=== PATIENT | male | born 1960 | race Caucasian/White ===

== ENCOUNTER 2019-01-26 09:12 | Inpatient (IN) | payer BC ==
[~2019-01-26] VITALS: Ht 175.3 cm; Wt 91.6 kg
[2019-01-26] VITALS (18 sets, daily range): BP systolic 105–157; BP diastolic 59–93
[2019-01-26] MEDS ORDERED: IODIXANOL 320 MG/ML 100 ML VIAL. ONE (09:16)
[2019-01-26] MEDS ORDERED: LIDOCAINE 1% Multi-Dose 20 ML VIAL. ONE (09:17)
[2019-01-26 09:48] LABS: HEMATOCRIT 47.3 % (39.0-53.0); HEMOGLOBIN 16.4 g/dL (13.0-17.5); RED BLOOD COUNT 5.19 x10^6/uL (4.30-5.70); RED CELL DISTRIBUTION WIDTH 13.5 % (11.5-14.5); WHITE BLOOD COUNT 10.2 x10^3/uL (4.0-11.0)
[2019-01-26 09:50] LABS: CALCIUM 10.1 mg/dL (8.5-10.1); CREATININE 0.9 mg/dL (0.7-1.3); GFR 86.7; POTASSIUM 4.3 mmol/L (3.5-5.1)
[2019-01-26] MEDS ORDERED: NIFE60TA16 PO (10:03)
[2019-01-26] MEDS ORDERED: SIMV40TA3 PO (10:05)
[2019-01-26] MEDS ORDERED: ASPI-630 PO (10:05)
[2019-01-26] MEDS ORDERED: LISI-130 PO (10:05)
[2019-01-26] MEDS ORDERED: MIDAZOLAM HCL/PF 2 MG/2 ML VIAL. ONE ×3 (10:28→12:28)
[2019-01-26] MEDS ORDERED: fentaNYL PF VIAL 100 MCG/2 ML VIAL ONE ×3 (10:28→12:28)
[2019-01-26] MEDS ORDERED: HEPARIN for IV BOLUS 10,000 UNIT/10 ML VIAL. ONE ×2 (11:04→11:19)
[2019-01-26] MEDS ORDERED: HEPARIN for IV BOLUS 10,000 UNIT/10 ML VIAL. IV ONE (11:15)
[2019-01-26] MEDS ORDERED: MIDAZOLAM HCL/PF 2 MG/2 ML VIAL. IV ONE (11:15)
[2019-01-26] MEDS ORDERED: fentaNYL PF VIAL 100 MCG/2 ML VIAL IV ONE (11:15)
[2019-01-26] MEDS ORDERED: IODIXANOL 320 MG/ML 100 ML VIAL. IART ONE (11:15)
[2019-01-26] MEDS ORDERED: NITROGLYCERIN 4 MG/20 ML SYRINGE for CATH LAB. ONE ×2 (11:19→12:00)
[2019-01-26] MEDS ORDERED: dilTIAZem IV PUSH 25 MG/5 ML VIAL ONE (11:19)
[2019-01-26] MEDS: IV NORMAL SALINE 1000ML BAG 1,000 ML IV SCH ×2 (12:42→16:06)
[2019-01-26] MEDS ORDERED: NITROGLYCERIN 200 MCG/2 ML SYRINGE FOR CATH/VASC LAB. ONE (12:43)
[2019-01-26] MEDS ORDERED: NITROGLYCERIN 200 MCG/2 ML SYRINGE FOR CATH/VASC LAB. IART ONE (12:45)
[2019-01-26] MEDS ORDERED: LIDOCAINE 1% Multi-Dose 20 ML VIAL. INJ ONE (12:45)
[2019-01-26] MEDS ORDERED: CLOPIDOGREL BISULFATE 75 MG TABLET ONE (13:03)
[2019-01-26] MEDS ORDERED: ASPIRIN 325 MG TABLET ONE (13:03)
[2019-01-26] MEDS ORDERED: ASPIRIN 325 MG TABLET PO ONE (13:15)
[2019-01-26] MEDS ORDERED: CLOPIDOGREL BISULFATE 75 MG TABLET PO ONE (13:15)
[2019-01-26] MEDS ORDERED: ATROPINE 0.5 MG/5 ML DISP.SYRINGE. IV PRN (13:45)
[2019-01-26] MEDS ORDERED: fentaNYL PF VIAL 100 MCG/2 ML VIAL IV PRN (13:45)
[2019-01-26] MEDS ORDERED: oxyCODONE/APAP 5/325 1 TAB TABLET PO PRN (13:45)
[2019-01-26] MEDS ORDERED: 0.9 % SODIUM CHLORIDE 10 ML DISP.SYRIN. IV PRN (13:45)
[2019-01-26] MEDS ORDERED: AMIODARONE 150 MG in IV DEXTROSE 5% 100ML 100 ML IV PRN (13:45)
[2019-01-26] MEDS ORDERED: LIDOCAINE 2% 100 MG/5 ML SYRINGE. IV PRN (13:45)
[2019-01-26] MEDS ORDERED: ACETAMINOPHEN 325 MG TABLET. PO PRN (13:45)
[2019-01-26] MEDS ORDERED: NITROGLYCERIN SUBLINGUAL 0.4 MG BOTTLE OF 25. SL PRN (13:45)
--- NOTE | 2019-01-26 14:47 | CARD ---
MR#: [id number] Date of Study: 01/26/2019 Ordering Physician: NATHANAEL DAMON, Referring Physician: NATHANAEL DAMON, Tech: Randolph Velasquez RT (R) APPROVED REPORT Patient StatusOUT-PATIENT Sql Architect: Randolph Velasquez RT (R) Procedure(s) performed: Fluoro time: 26.3 MINS Dose: 150 GY/CM2 Contrast: 141 ML Moderate sedation: 143 Min Abdominal aortogram with bilateral peripheral run-off HIGH VALUE ASSOCIATE and atherectomy of the SFA HISTORY The patient is a 58 year-old male with a history of : coronary artery disease, tobacco history() , hy pertension, dyslipidemia. INDICATION FOR PROCEDURE The indication(s) include : Bilateral claudication. PROCEDURE NARRATIVE After appropriate informed consent, the patient was brought to the general laborer and placed in the supine position. Preprocedural timeout was completed and confirmed the right patient and procedure. The bila teral groins were prepped and draped in usual sterile fashion. Moderate sedation acheived with Fentan yl and Versed. The patient received 2000 units of Heparin for anticoagulation. Access: Under lidocaine local anesthesia, a 5Fr introducer sheath was placed in the RCFA via the francie fied seldinger technique with a J-tipped guidewire and an 18g needle. Diagnostic angiography was then performed using a 5Fr Omniflush catheter with digital subtraction angiography. Next, the contralater al (LCFA) was accessed with the aid of the Omniflush catheter and a J-tipped guidewire. The omniflush was then exchanged for a long angled glide catheter which was then placed in the LCFA. Repeat lower extremity with DSA was performed. Subsequently, the glidecatheter was used to do a pullback maneuver on the [place] stenosis. No significant stenosis was identified at the levels of the common iliac arteri es and the right external iliac artery. FINDINGS: AO: 154/86 AORTA: Moderate adventitial calcification with a small aneurysm in the distal abdominal aorta. RENAL arteries: Single right and left renal arteries were identified without significant disease. RCIA: Mild diffuse irregularities of upto 20%. REIA: Has a proximal 40-50% stenosis, a patent mid stent. RIIA: No significant disease. RCFA: No significant disease. RSFA: No significant disease. RPOP: No significant disease. RAT: No significant disease. RTP trunk: No significant disease. LCIA: No significant disease AFRICA: Mild to moderate diffuse disease of up to 50% LIIA: Has severe diffuse disease. LCFA: The distal POLICE CAPTAIN has a heavily calcified bulky 70% stenosis. LSFA: Has heavy adventitial calcification with an ostial 80% stenosis. There is also a more focal dis dana 70% stenosis. LPOP: No significant disease. LAT: No significant disease. LTP trunk: No significant disease. INTERVENTIONAL TECHNIQUE: ATHERECTOMY AND BALLOON ANGIOPLASTY OF THE LSFA Heparin was used for anticoagulation. Based upon the patient's significant claudication symptoms, ult rasound velocities suggestive of significant disease and angiographic findings consistent with heavy calcific focal disease a decision was made for intervention. After adequate heparinization with an AC T above 250 the right-sided sheath was replaced with a 6 Croatian 45 cm destination sheath which was pl aced in the left common femoral artery. A Viper wire was used to traverse the stenoses and this was p laced in the distal peroneal artery. Next, a embolus shield 4�7 filter was used and this was deployed in the popliteal artery. Next, a CSI 2 mm bur was used to perform orbital atherectomy of the ostial SFA as well as the distal SFA focal stenoses at low medium at high speeds. Subsequent only, balloon a ngioplasty was performed of the distal and proximal SFA with 5 mm balloons. Final angiography demonst rated excellent flow without any evidence of dissection. There was a residual less than 30% stenosis at the level of the ostium of the SFA. Due to lack of any critical limb ischemia it was felt that fur ther intervention should be deferred as repeat balloon angioplasty may lead to dissection and need fo r stenting which would be less than ideal in the common femoral arterial segment. The patient tolerat ed the procedure well. He received aspirin and Plavix at case completion. The sheath was then removed via manual compression. Conclusion 1. [place] category for bilateral lower extremity claudication with lifestyle limitations 2. Small focal distal abdominal aortic aneurysm 3. Moderate inflow disease at the level of the external iliacs bilaterally without any critical flow- limiting stenosis based on pullback gradient 4. Patent right external iliac artery stent without any significant in-stent restenosis 5. Successful orbital atherectomy and balloon angioplasty with a 5 mm balloon at the level of the lef t ostial/proximal and distal SFA. Recommendations ASA 81 mg Plavix 75mg daily Smoking cessation. Risk factor modification. Signed by : Nathanael Damon, Electronically Approved : 01/26/2019 14:47:00
[2019-01-26] MEDS: LISINOPRIL 20 MG TABLET PO SCH (17:00)
[2019-01-26] MEDS ORDERED: SIMVASTATIN 40 MG TABLET. PO SCH (21:00)
[2019-01-26] MEDS ORDERED: ATORVASTATIN CALCIUM 20 MG TABLET PO SCH (21:00)
[2019-01-27 03:00] VITALS: BP 134/77
[2019-01-27 04:56] LABS: HEMATOCRIT 44.2 % (39.0-53.0); HEMOGLOBIN 15.3 g/dL (13.0-17.5); RED BLOOD COUNT 4.87 x10^6/uL (4.30-5.70); RED CELL DISTRIBUTION WIDTH 13.4 % (11.5-14.5); WHITE BLOOD COUNT 10.8 x10^3/uL (4.0-11.0)
[2019-01-27 05:15] LABS: CALCIUM 9.6 mg/dL (8.5-10.1); CREATININE 0.9 mg/dL (0.7-1.3); GFR 86.7; POTASSIUM 4.1 mmol/L (3.5-5.1)
[2019-01-27 07:00] VITALS: BP 122/69
[2019-01-27] MEDS ORDERED: CLOPIDOGREL BISULFATE 75 MG TABLET PO SCH (08:00)
[2019-01-27] MEDS: LISINOPRIL 20 MG TABLET PO SCH (08:30)
[2019-01-27] MEDS ORDERED: ASPIRIN CHEWABLE 81 MG TABLET. PO SCH (09:00)
[2019-01-27 10:36] VITALS: BP 126/66
[2019-01-27] MEDS ORDERED: CLOP75TA PO (10:40)
--- NOTE | 2019-01-27 10:46 | DISCH ---
DISCHARGE INSTRUCTIONS Condition on Discharge Condition on Discharge: Stable Activity After Discharge Activity Instructions for Disc: Activity as tolerated Other activity instructions: keep right groin area clean and dry. May shower. Bathing Instructions: No Tub Bath until see Lifting Instructions after Dis: No heavy lifting, No pulling or pushing, Do not lift >10 pounds Exercise Instruction after Dis: Progress as tolerated Driving Instructions after Dis: Do not drive (for 5 days ) Diet after Discharge Diet after Discharge: Cardiac Contacting the DRAcosta after DC Call your doctor for: If your condition worsens Treatment/Equipment after DC Adaptive Equipment Issued: None SHAQUILLE YUEN APRN Jan 27, 2019 10:46
--- NOTE | 2019-01-27 10:48 | PDOC3 ---
Discharge Summary Visit Information Date of Admission: Jan 26, 2019 Date of Discharge: Jan 27, 2019 Admitting Diagnosis Comment: Peripheral artery disease Coronary artery disease Hypertension Hyperlipidemia Final Diagnosis Peripheral artery disease Coronary artery disease Hypertension Hyperlipidemia Brief Hospital Course Allergies Allergies Coded Allergies Type Severity Reaction Last Updated Verified No Known Drug Allergies 01/26/19 No Vital Signs Vital Signs Date Time Temp Pulse Resp B/P (MAP) Pulse Ox O2 Delivery O2 Flow Rate FiO2 01/27/19 10:36 98.3 80 18 126/66 (86) 96 Room Air 98.3 01/27/19 08:00 2.0 Lab Results Laboratory Tests Test 01/26/19 09:35 01/26/19 11:27 01/26/19 14:32 01/27/19 04:35 White Blood Count 10.2 x10^3/uL (4.0-11.0) 10.8 x10^3/uL (4.0-11.0) Red Blood Count 5.19 x10^6/uL (4.30-5.70) 4.87 x10^6/uL (4.30-5.70) Hemoglobin 16.4 g/dL (13.0-17.5) 15.3 g/dL (13.0-17.5) Hematocrit 47.3 % (39.0-53.0) 44.2 % (39.0-53.0) Mean Corpuscular Volume 91 fL (79-100) 91 fL (79-100) Mean Corpuscular Hemoglobin 32 pg (25-35) 32 pg (25-35) Mean Corpuscular Hemoglobin Concent 35 g/dL (31-37) 35 g/dL (31-37) Red Cell Distribution Width 13.5 % (11.5-14.5) 13.4 % (11.5-14.5) Platelet Count 316 x10^3/uL (140-400) 270 x10^3/uL (140-400) Prothrombin Time 12.0 SEC (11.7-14.0) Prothromb Time International Ratio 0.9 (0.8-1.1) Sodium Level 142 mmol/L (136-145) 140 mmol/L (136-145) Potassium Level 4.3 mmol/L (3.5-5.1) 4.1 mmol/L (3.5-5.1) Chloride Level 106 mmol/L (98-107) 105 mmol/L (98-107) Carbon Dioxide Level 27 mmol/L (21-32) 25 mmol/L (21-32) Anion Gap 9 (6-14) 10 (6-14) Blood Urea Nitrogen 10 mg/dL (8-26) 10 mg/dL (8-26) Creatinine 0.9 mg/dL (0.7-1.3) 0.9 mg/dL (0.7-1.3) Estimated GFR (Cockcroft-Gault) 86.7 86.7 Glucose Level 102 mg/dL (70-99) 101 mg/dL (70-99) Calcium Level 10.1 mg/dL (8.5-10.1) 9.6 mg/dL (8.5-10.1) Activated Clotting Time 235 sec (92-181) 179 sec (92-181) Triglycerides Level 248 mg/dL (0-150) Cholesterol Level 172 mg/dL (0-200) LDL Cholesterol, Calculated 79 mg/dL (0-100) VLDL Cholesterol, Calculated 50 mg/dL (0-40) Non-HDL Cholesterol Calculated 129 mg/dL (0-129) HDL Cholesterol 43 mg/dL (40-60) Cholesterol/HDL Ratio 4.0 Laboratory Tests Test 01/26/19 11:27 01/26/19 14:32 01/27/19 04:35 Activated Clotting Time 235 sec (92-181) 179 sec (92-181) White Blood Count 10.8 x10^3/uL (4.0-11.0) Red Blood Count 4.87 x10^6/uL (4.30-5.70) Hemoglobin 15.3 g/dL (13.0-17.5) Hematocrit 44.2 % (39.0-53.0) Mean Corpuscular Volume 91 fL (79-100) Mean Corpuscular Hemoglobin 32 pg (25-35) Mean Corpuscular Hemoglobin Concent 35 g/dL (31-37) Red Cell Distribution Width 13.4 % (11.5-14.5) Platelet Count 270 x10^3/uL (140-400) Sodium Level 140 mmol/L (136-145) Potassium Level 4.1 mmol/L (3.5-5.1) Chloride Level 105 mmol/L (98-107) Carbon Dioxide Level 25 mmol/L (21-32) Anion Gap 10 (6-14) Blood Urea Nitrogen 10 mg/dL (8-26) Creatinine 0.9 mg/dL (0.7-1.3) Estimated GFR (Cockcroft-Gault) 86.7 Glucose Level 101 mg/dL (70-99) Calcium Level 9.6 mg/dL (8.5-10.1) Triglycerides Level 248 mg/dL (0-150) Cholesterol Level 172 mg/dL (0-200) LDL Cholesterol, Calculated 79 mg/dL (0-100) VLDL Cholesterol, Calculated 50 mg/dL (0-40) Non-HDL Cholesterol Calculated 129 mg/dL (0-129) HDL Cholesterol 43 mg/dL (40-60) Cholesterol/HDL Ratio 4.0 Brief Hospital Course Mr. Montoya is a 58 old male, with a history of CAD, PAD, hypertension, and hyperlipidemia, who presented to the office with bilateral lower extremity claudication symptoms. Duplex ultrasound consistent with severe left SFA disease. Patient was brought electively for aortogram with runoff, which was notable for [place] category for bilateral lower extremity claudication with lifestyle limitations. There was moderate inflow disease at the level of the external iliacs bilaterally without any critical flow-limiting stenosis based on pullback gradient. Right external iliac artery stent was patent without any significant in-stent restenosis. Patient underwent successful orbital atherectomy and balloon angioplasty with a 5 mm balloon at the level of the left ostial/proximal and distal SFA. Was monitored overnight without any acute complications. Lungs CTA. Right groin arteriotomy site soft, clean, and dry. No erythema, ecchymosis, or hematoma present. Bilateral neurovascular status intact. Discharge instruction reviewed and patient verbalized and understanding. Smoking cessation was discussed and encouraged. Discharge Information Follow Up: Weeks (6) Disposition/Orders: D/C to Home Scheduled Aspirin (Aspirin) 81 Mg Tab.chew, 1 TAB PO DAILY for , #30 Ref 3 (Reported) Entered as Reported by: BOO LOPEZ RN on 01/26/19 1005 Last Taken: Unknown Dose on 01/26/19 Last Action: Continued on 01/26/19 1605 by AELX SHEIKH RN Clopidogrel Bisulfate (Clopidogrel) 75 Mg Tablet, 75 MG PO DAILYWBKFT for ar terial disease for 30 Days, #30 Ref 2 Prescribed by: SHAQUILLE YUEN APRN on 01/27/19 1040 Lisinopril (Lisinopril) 40 Mg Tablet, 1 TAB PO DAILY for francis inhibitor, #30 Ref 5 (Reported) Entered as Reported by: BOO LOPEZ RN on 01/26/19 100 Last Taken: Unknown Dose on 01/26/19 Last Action: Continued on 01/26/191604 by ALEX SHEIKH RN Nifedipine (Nifedipine Er) 60 Mg Tab.er.24, 1 TAB PO DAILY for , #30 Ref 5 (Rep orted) Entered as Reported by: BOO LOPEZ RN on 01/26/19 100 Last Taken: Unknown Dose on 01/26/19 Last Action: Converted on 01/26/191604 by ALEX SHEIKH RN Simvastatin (Simvastatin) 40 Mg Tablet, 1 TAB PO QHS for hld, #30 Ref 5 (Reported) Entered as Reported by: BOO LOPEZ RN on 01/26/19 100 Last Action: Continued on 01/26/191604 by ALEX SHEIKH RN Patient Instructions Patient Instructions GENERAL INSTRUCTIONS: 1. Your dressing should be removed prior to leaving the hospital. 2. It is OK to shower the day after your procedure. 3. If you received stents, be sure to carry your stent information card with you in your wallet/purse at all times. 4. Call the office immediately at [phone] if you notice any fever or if there is redness, worsening tenderness/pain, increased bruising, or drainage from the puncture site. 5. Should you have bleeding from the site, lie down immediately & put pressure on the site. The pressure should be hard enough to stop the bleeding. Have the nearest person call 911. DO NOT try to drive to the ER with active bleeding. 6. If you notice a change in color, coolness to touch, or loss of feeling in the affected extremity, come to the emergency room. Please have someone drive you or call 911 if no one is available. DO NOT drive yourself. 7. If you normally take glucophage (metformin), please do not take this medicine for 48 hours following your procedure. 8. DO NOT STOP TAKING YOUR PLAVIX OR ASPIRIN UNLESS IT IS CLEARED BY A FIBER OPTIC CENTRAL OFFICE INSTALLER OF YOUR TEXTILE COLORIST FORMULATOR AT OUR OFFICE. 9. QUIT SMOKING: the [place] [employer], [place] [employer], & [place] [employer] have cessation resources available on their websites 10. Please have someone available to drive you home from the hospital as you may be limited by sedation medications given during the procedure. Femoral (Groin) access: 1. Do no lifting, pushing, pulling, bending, stooping, or recurrent stair climbing for 3 days following your procedure. 2. Once past the first 3 days, do not do any HEAVY exertion or lifting for one week following the procedure. No gym workouts, running, lifting greater than a gallon of milk, etc 3. Do not submerge in bath or pool for one week. OK to drive 3 days following your procedure, but if going long distance, do not go alone & take hourly breaks to get out of car and walk around. Call the office at [phone] for any questions or concerns. SHAQUILLE YUEN APRN Jan 27, 2019 10:47
--- NOTE | 2019-01-27 11:40 | NUR ---
Discharge Note: JOSEPHINE TAYLOR [address] [place] [address] Discharge instructions and discharge home medications reviewed with Patient and a copy given. All questions have been answered and understanding verbalized. The following instructions and handouts were given: Post cath - care after Discontinued IV line Patient discharged to home with self care via spouse
== END 2019-01-27 11:18 | disposition home or self-care (01) | DRG 272 ==
LOC: CCL 09:12 → 2 SOUTH 12:30
PROVIDERS: ADMIT Internal Medicine Cardiovascular Disease; ATTEND Internal Medicine Cardiovascular Disease
PROC: 04CL3ZZ Extirpation of Matter from Left Femoral Artery, Percutaneous Approach (ICD-10-PCS; principal; 2019-01-26)
PROC: 047L3ZZ Dilation of Left Femoral Artery, Percutaneous Approach (ICD-10-PCS; 2019-01-26)
PROC: B41D1ZZ Fluoroscopy of Aorta and Bilateral Lower Extremity Arteries using Low Osmolar Contrast (ICD-10-PCS; 2019-01-26)
DX: I73.9 Peripheral vascular disease, unspecified (principal); E78.5 Hyperlipidemia, unspecified; I25.10 Atherosclerotic heart disease of native coronary artery without angina pectoris; I71.4 Abdominal aortic aneurysm, without rupture; I10 Essential (primary) hypertension; Z79.899 Other long term (current) drug therapy; Z79.82 Long term (current) use of aspirin; Z95.5 Presence of coronary angioplasty implant and graft; Z87.891 Personal history of nicotine dependence
CPT/HCPCS: 36415; 37225; 75625; 75716; 80048; 80061; 85027; 85347; 85610; 99152; 99153; 99406; C1724; C1725; C1769; C1892; C1894; J1644; J2250; J3010; J3490; J7030; Q9967; C1884; G0378

== ENCOUNTER 2019-02-12 10:51 | Inpatient (IN) | payer BC ==
[~2019-02-12] VITALS: Ht 175.3 cm; Wt 92.1 kg
[~2019-02-12 10:51] MED LIST: ASPI-630 PO; CLOP75TA PO; LISI-130 PO; NIFE60TA16 PO; SIMV40TA3 PO
--- NOTE | 2019-02-12 11:07 | PHYS DOC ---
Adult General Chief Complaint Chief Complaint: BLOODY STOOL HPI HPI 58 yo male presents to the ER with complaints of dark tarry stools. Patient was seen approximately 2 weeks ago with angioplasty to his SFA per Dr. Patrick. Patient was placed on plavix at that time. Patient states that over the last week he has noticed dark tarry stools, dizziness. Patient denies nausea, vomiting, chest pain, abdominal pain, fever. Nothing makes his symptoms worse, nothing makes his symptoms better. Review of Systems Review of Systems Constitutional: Denies fever or chills [] Respiratory: Denies cough or shortness of breath [] Cardiovascular: No additional information not addressed in HPI [] GI: Denies abdominal pain, nausea, vomiting, bloody stools or diarrhea [] Musculoskeletal: Denies back pain or joint pain [] Integument: Denies rash or skin lesions [] Neurologic: Denies headache, focal weakness or sensory changes [] All other systems were reviewed and found to be within normal limits, except as documented in this note. Current Medications Current Medications Current Medications Medications (Trade) Dose Ordered Sig/Audrey Start Time Stop Time Status Last Admin Dose Admin Pantoprazole Sodium 80 mg/ Sodium Chloride 100 ml @ 10 mls/hr 1X ONCE 02/12/19 11:45 02/12/19 21:44 Allergies Allergies Allergies Coded Allergies Type Severity Reaction Last Updated Verified No Known Drug Allergies 01/26/19 No Physical Exam Physical Exam Constitutional: Well developed, well nourished, no acute distress, non-toxic appearance. [] HENT: Normocephalic, atraumatic, bilateral external ears normal, oropharynx moist, no oral exudates, nose normal. [] Eyes: PERRLA, EOMI, conjunctiva normal, no discharge. [] Cardiovascular:Heart rate regular rhythm, no murmur [] Lungs & Thorax: Bilateral breath sounds clear to auscultation [] Abdomen: Bowel sounds normal, soft, no tenderness, no masses, no pulsatile masses. [] Skin: Warm, dry, no erythema, no rash. [] Extremities: No tenderness, no cyanosis, no clubbing, ROM intact, no edema. [] Neurologic: Alert and oriented X 3, no focal deficits noted. [] Psychologic: Affect normal, judgement normal, mood normal. [] Current Patient Data Vital Signs Vital Signs Date Time Temp Pulse Resp B/P (MAP) Pulse Ox O2 Delivery O2 Flow Rate FiO2 02/12/19 10:54 97.3 103 17 157/86 (109) 98 Room Air 97.3 Lab Values Laboratory Tests Test 02/12/19 11:11 White Blood Count 10.2 x10^3/uL (4.0-11.0) Red Blood Count 4.59 x10^6/uL (4.30-5.70) Hemoglobin 14.5 g/dL (13.0-17.5) Hematocrit 41.4 % (39.0-53.0) Mean Corpuscular Volume 90 fL (79-100) Mean Corpuscular Hemoglobin 32 pg (25-35) Mean Corpuscular Hemoglobin Concent 35 g/dL (31-37) Red Cell Distribution Width 12.9 % (11.5-14.5) Platelet Count 321 x10^3/uL (140-400) Neutrophils (%) (Auto) 57 % (31-73) Lymphocytes (%) (Auto) 31 % (24-48) Monocytes (%) (Auto) 9 % (0-9) Eosinophils (%) (Auto) 2 % (0-3) Basophils (%) (Auto) 1 % (0-3) Neutrophils # (Auto) 5.8 x10^3/uL (1.8-7.7) Lymphocytes # (Auto) 3.1 x10^3/uL (1.0-4.8) Monocytes # (Auto) 0.9 x10^3/uL (0.0-1.1) Eosinophils # (Auto) 0.2 x10^3/uL (0.0-0.7) Basophils # (Auto) 0.1 x10^3/uL (0.0-0.2) Prothrombin Time 12.5 SEC (11.7-14.0) Prothrombin Time INR 1.0 (0.8-1.1) Sodium Level 140 mmol/L (136-145) Potassium Level 4.4 mmol/L (3.5-5.1) Chloride Level 104 mmol/L (98-107) Carbon Dioxide Level 23 mmol/L (21-32) Anion Gap 13 (6-14) Blood Urea Nitrogen 16 mg/dL (8-26) Creatinine 0.9 mg/dL (0.7-1.3) Estimated GFR (Cockcroft-Gault) 86.7 BUN/Creatinine Ratio 18 (6-20) Glucose Level 123 mg/dL (70-99) H Calcium Level 9.6 mg/dL (8.5-10.1) Total Bilirubin 0.4 mg/dL (0.2-1.0) Aspartate Amino Transferase (AST) 25 U/L (15-37) Alanine Aminotransferase (ALT) 38 U/L (16-63) Alkaline Phosphatase 79 U/L (46-116) Total Protein 8.0 g/dL (6.4-8.2) Albumin 4.0 g/dL (3.4-5.0) Albumin/Globulin Ratio 1.0 (1.0-1.7) Laboratory Tests 02/12/19 11:11 Laboratory Tests 02/12/19 11:11 EKG EKG EKG reviewed, heart rate 95, left axis deviation, no acute ST elevation [place], nonurgent EKG[] Interpretation Time: Interpretation time 1119 Radiology/Procedures Radiology/Procedures [] Course & Med Decision Making Course & Med Decision Making Pertinent Labs and Imaging studies reviewed. (See chart for details) []58 yo male presents to the ER with complaints of dark tarry stools. Patient was seen approximately 2 weeks ago with angioplasty to his SFA per Dr. Patrick. Patient was placed on plavix at that time. Patient states that over the last week he has noticed dark tarry stools, dizziness. Patient denies nausea, vomiting, chest pain, abdominal pain, fever. Nothing makes his symptoms worse, nothing makes his symptoms better. Labs reviewed - Hgb 14.5 Obvious tarry stools - melena Discussed with Zenaida (GI BANDAGE WINDING MACHINE OPERATOR/PA) - will see patient in consultation Discussed admit with Hospitalist Nita Disclaimer Nita Disclaimer This electronic medical record was generated, in whole or in part, using a voice recognition dictation system. Departure Departure Impression: Primary Impression: Upper GI bleed Additional Impression: Melanotic stools Disposition: ADMITTED INPATIENT Admitting Physician: CHRIS Condition: STABLE Referrals: RYAN WHITLOCK MD (PCP) Problem Qualifiers TERE ABERNATHY MD Feb 12, 2019 11:07
[2019-02-12 11:21] LABS: BASO # 0.1 x10^3/uL (0.0-0.2); BASO % 1 % (0-3); EOS # 0.2 x10^3/uL (0.0-0.7); EOS % 2 % (0-3); HEMATOCRIT 41.4 % (39.0-53.0); HEMOGLOBIN 14.5 g/dL (13.0-17.5); LYMPH # 3.1 x10^3/uL (1.0-4.8); LYMPH % 31 % (24-48); MEAN CORPUSCULAR HEMOGLOBIN 32 pg (25-35); MEAN CORPUSCULAR HGB CONC 35 g/dL (31-37); MEAN CORPUSCULAR VOLUME 90 fL (79-100); MONO # 0.9 x10^3/uL (0.0-1.1); MONO % 9 % (0-9); NEUT # 5.8 x10^3/uL (1.8-7.7); NEUT % 57 % (31-73); PLATELET COUNT 321 x10^3/uL (140-400); RED BLOOD COUNT 4.59 x10^6/uL (4.30-5.70); RED CELL DISTRIBUTION WIDTH 12.9 % (11.5-14.5); WHITE BLOOD COUNT 10.2 x10^3/uL (4.0-11.0)
[2019-02-12 11:30] LABS: CALCIUM 9.6 mg/dL (8.5-10.1); CREATININE 0.9 mg/dL (0.7-1.3); GFR 86.7; POTASSIUM 4.4 mmol/L (3.5-5.1)
[2019-02-12 11:32] LABS: PROTHROMBIN TIME PATIENT 12.5 SEC (11.7-14.0)
[2019-02-12 11:36] LABS: TOTAL BILIRUBIN 0.4 mg/dL (0.2-1.0)
[2019-02-12] MEDS ORDERED: PANTOPRAZOLE SODIUM IV DRIP 80 MG in IV NORMAL SALINE 100ML 100 ML IV ONE (11:45)
[2019-02-12] MEDS ORDERED: ONDANSETRON PF 4 MG/2 ML VIAL. IV PRN (12:00)
--- NOTE | 2019-02-12 12:01 | EKG ---
[facility] [address] [place] [address] Test Date: 2019-02-12 Test Time: 11:19:21 Pat Name: JOSEPHINE TAYLOR Department: Room: Gender: M Community Health Nursing Director: : 1960 Requested By: TERE ABERNATHY Order Number: [id number] Reading MD: Measurements Intervals [place] Rate: 94 P: 34 NM: 162 QRS: -24 QRSD: 84 T: 43 QT: 340 QTc: 430 Interpretive Statements SINUS RHYTHM LEFTWARD AXIS OTHERWISE NORMAL ECG No previous ECG available for comparison
--- NOTE | 2019-02-12 12:32 | PDOC2 ---
GI CONSULT Reason For Consult: UGIB on Plavix, Hgb stable HPI: HPI: 58 y/o male seen in ER, d/w Dr. Mccracken. Emely present. S/p left SFA angioplasty on 01/26/19. Continued on ASA 81mg QD w/ addition of Plavix. Black formed stools (once daily) x 1 week, intermittent dizziness whiel driving. Say PCP this morning, reports Hgb was 10 (a 4 point drop from previous) and "stool test had blood." Here, Hgb 14.5, BUN 16. Denies reflux/heartburn, dysphagia, n/v, change in appetite, early satiety, bloating, abd pain (though does have right-sided pain from lifting something), diarrhea, constipation, hematochezia, or weight loss. No previous EGD. Two previous colonoscopies (last ~1 year ago @ [facility]?), both w/ polyps. No GB, liver, pancreas, or PUD history. No NSAIDs. PMH: PMH: CAD w/ stent, PAD w/ recent angioplasty, HTN, HLD, colon polyps FH: Family History: Cancer (brother - colon) Social History: Smoke: <1 pack per day ALCOHOL: heavy (8 or 9 beers every other day) Drugs: None ROS: GEN: Denies fevers, chills, sweats HEENT: Denies blurred vision, sore throat CV: Denies chest pain RESP: Denies shortness of air, cough GI: Per HPI : Denies hematuria, dysuria ENDO: Denies weight changes NEURO: +dizziness MSK: Denies weakness, joint pain/swelling SKIN: Denies jaundice, pruritus Vitals: Vitals: Vital Signs Date Time Temp Pulse Resp B/P (MAP) Pulse Ox O2 Delivery O2 Flow Rate FiO2 02/12/19 10:54 97.3 103 17 157/86 (109) 98 Room Air 97.3 Labs: Labs: Laboratory Tests Test 02/12/19 11:11 White Blood Count 10.2 x10^3/uL (4.0-11.0) Red Blood Count 4.59 x10^6/uL (4.30-5.70) Hemoglobin 14.5 g/dL (13.0-17.5) Hematocrit 41.4 % (39.0-53.0) Mean Corpuscular Volume 90 fL (79-100) Mean Corpuscular Hemoglobin 32 pg (25-35) Mean Corpuscular Hemoglobin Concent 35 g/dL (31-37) Red Cell Distribution Width 12.9 % (11.5-14.5) Platelet Count 321 x10^3/uL (140-400) Neutrophils (%) (Auto) 57 % (31-73) Lymphocytes (%) (Auto) 31 % (24-48) Monocytes (%) (Auto) 9 % (0-9) Eosinophils (%) (Auto) 2 % (0-3) Basophils (%) (Auto) 1 % (0-3) Neutrophils # (Auto) 5.8 x10^3/uL (1.8-7.7) Lymphocytes # (Auto) 3.1 x10^3/uL (1.0-4.8) Monocytes # (Auto) 0.9 x10^3/uL (0.0-1.1) Eosinophils # (Auto) 0.2 x10^3/uL (0.0-0.7) Basophils # (Auto) 0.1 x10^3/uL (0.0-0.2) Prothrombin Time 12.5 SEC (11.7-14.0) Prothromb Time International Ratio 1.0 (0.8-1.1) Sodium Level 140 mmol/L (136-145) Potassium Level 4.4 mmol/L (3.5-5.1) Chloride Level 104 mmol/L (98-107) Carbon Dioxide Level 23 mmol/L (21-32) Anion Gap 13 (6-14) Blood Urea Nitrogen 16 mg/dL (8-26) Creatinine 0.9 mg/dL (0.7-1.3) Estimated GFR (Cockcroft-Gault) 86.7 BUN/Creatinine Ratio 18 (6-20) Glucose Level 123 mg/dL (70-99) Calcium Level 9.6 mg/dL (8.5-10.1) Total Bilirubin 0.4 mg/dL (0.2-1.0) Aspartate Amino Transf (AST/SGOT) 25 U/L (15-37) Alanine Aminotransferase (ALT/SGPT) 38 U/L (16-63) Alkaline Phosphatase 79 U/L (46-116) Total Protein 8.0 g/dL (6.4-8.2) Albumin 4.0 g/dL (3.4-5.0) Albumin/Globulin Ratio 1.0 (1.0-1.7) Allergies: Coded Allergies: No Known Drug Allergies (Unverified , 01/26/19) Medications: Current Medications Medications (Trade) Dose Ordered Sig/Audrey Route PRN Reason Start Time Stop Time Status Last Admin Dose Admin Pantoprazole Sodium 80 mg/ Sodium Chloride 100 ml @ 10 mls/hr 1X ONCE IV 02/12/19 11:45 02/12/19 21:44 02/12/19 11:51 Imaging: Imaging: - PE: GEN: NAD HEENT: Atraumatic, PERRL LUNGS: diminished anteriorly HEART: mild tachycardia ABD: NABS, S/ND/NT EXTREMITY: No edema SKIN: No rashes, no jaundice NEURO/PSYCH: A & O 3 A/P: A/P: Black stools CAD and PAD on Plavix and ASA Recent left SFA angioplasty CRC screen, h/o polyps - UTD +tobacco +alcohol -- NPO for EGD today at 1630. Agree w/ PPI. ANJALI MCINTYRE Feb 12, 2019 12:32
[2019-02-12 12:50] VITALS: BP 131/75
[2019-02-12] MEDS ORDERED: IV RINGERS,LACTATED 1000ML 1,000 ML IV SCH (13:18)
--- NOTE | 2019-02-12 14:45 | HP ---
ADMIT DATE: 02/12/2019 CHIEF COMPLAINT: Bloody stools. HISTORY OF PRESENT ILLNESS: The patient is a pleasant 58-year-old male who had some new stents placed in his right leg into the superior femoral artery by Dr. Calderon recently. At that time, he was placed on Plavix. He actually has other stents, some other ones in his right lower extremity, in the calf. He also has stents in his heart. Basically, he has been doing well, but now has developed dark stools. They checked a hemoglobin level at doctor's office and was 10. He was told to go to the ER. When we checked here, it was 14, but the patient is indeed guaiac positive. I talked to the ER doctor, we are going to admit the patient and consult GI. PAST MEDICAL HISTORY: Severe peripheral vascular disease with multiple stents, coronary artery disease with cardiac stents, tobacco abuse, diabetes, hypertension. ALLERGIES: None. FAMILY HISTORY: Diabetes. SOCIAL HISTORY: He does not drink or take drugs. He does smoke. MEDICATIONS: Reviewed, please refer to the MRAD. REVIEW OF SYSTEMS: GENERAL: No history of weight change, weakness or fevers. SKIN: No bruising, hair changes or rashes. EYES: No blurred, double or loss of vision. NOSE AND THROAT: No history of nosebleeds, hoarseness or sore throat. HEART: No history of palpitations, chest pain or shortness of breath on exertion. LUNGS: Denies cough, hemoptysis, wheezing or shortness of breath. GASTROINTESTINAL: Denies changes in appetite, nausea, vomiting, diarrhea or constipation. GENITOURINARY: No history of frequency, urgency, hesitancy or nocturia. NEUROLOGIC: Denies history of numbness, tingling, tremor or weakness. PSYCHIATRIC: No history of panic, anxiety or depression. ENDOCRINE: No history of heat or cold intolerance, polyuria or polydipsia. EXTREMITIES: Denies muscle weakness, joint pain, pain on walking or stiffness. PHYSICAL EXAMINATION: VITALS: Within normal limits and are stable. GENERAL: No apparent distress. Alert and oriented. HEENT: Head is normocephalic, atraumatic, pupils were equally round and reactive to light and accommodation. NECK: Supple, no JVD, no thyromegaly was noted. LUNGS: Clear to auscultation in all lung shaver without rhonchi or wheezing. HEART: RRR, S1, S2 present. Peripheral pulses intact, no obvious murmurs were noted. ABDOMEN: Soft, nontender. Positive bowel sounds no organomegaly, normal bowel sounds. EXTREMITIES: Without any cyanosis, clubbing, or edema. Pedal pulses intact, Homans sign is negative. NEUROLOGIC: Normal speech, normal tone. A & O x3, moves all extremities, no obvious focal deficits. PSYCHIATRIC: Normal affect, normal mood. Stable. SKIN: No ulcerations or rashes, good skin turgor, no jaundice. VASCULAR: Good capillary refill, neurovascular bundle appears to be intact. LABORATORY DATA: Hemoglobin is 14.5. Electrolytes are normal. ASSESSMENT AND PLAN: Probable gastrointestinal bleed secondary to Plavix. The patient has been admitted. We are checking serial hemoglobin levels. Consult GI. He is scheduled to go for endoscopy at 3:00. For now, continue home meds except for the blood thinning PT, OT. PROGNOSIS: Guarded. JETT DUMAS DO DR: BARBRA/jefry JOB#: [id number] / [id number]
[2019-02-12 15:00] VITALS: BP 122/69
[2019-02-12] MEDS ORDERED: PROPOFOL 20 ML IV ONE (15:49)
--- NOTE | 2019-02-12 17:03 | PDOC4 ---
Operative Note Operative Note EGD with biopsies Meds Propofol per anesthesia Pre-op dx melena/plavix use post-op dx multiple duodenal ulcers linear/superficial s/p bx gastritis Plan PPI therapy for 2 months with protonix 40 mg daily advance diet as tolerated consider neurology consult for dizziness JADE JAVIER MD Feb 12, 2019 17:02
[2019-02-12] MEDS ORDERED: ATOR40TA59 PO (18:10)
[2019-02-12 19:00] VITALS: BP 127/71
[2019-02-12 23:00] VITALS: BP 124/69
[2019-02-13 03:00] VITALS: BP 98/41
[2019-02-13 04:35] LABS: BASO # 0.1 x10^3/uL (0.0-0.2); BASO % 1 % (0-3); EOS # 0.4 x10^3/uL (0.0-0.7); EOS % 4 % (0-3); HEMATOCRIT 39.9 % (39.0-53.0); HEMOGLOBIN 13.5 g/dL (13.0-17.5); LYMPH # 3.2 x10^3/uL (1.0-4.8); LYMPH % 34 % (24-48); MEAN CORPUSCULAR HEMOGLOBIN 31 pg (25-35); MEAN CORPUSCULAR HGB CONC 34 g/dL (31-37); MEAN CORPUSCULAR VOLUME 91 fL (79-100); MONO # 0.9 x10^3/uL (0.0-1.1); MONO % 10 % (0-9); NEUT # 4.8 x10^3/uL (1.8-7.7); NEUT % 51 % (31-73); PLATELET COUNT 308 x10^3/uL (140-400); RED CELL DISTRIBUTION WIDTH 13.1 % (11.5-14.5); WHITE BLOOD COUNT 9.4 x10^3/uL (4.0-11.0)
[2019-02-13 05:00] LABS: ALBUMIN 3.5 g/dL (3.4-5.0); CALCIUM 9.1 mg/dL (8.5-10.1); CREATININE 0.9 mg/dL (0.7-1.3); GFR 86.7; POTASSIUM 4.2 mmol/L (3.5-5.1); TOTAL BILIRUBIN 0.3 mg/dL (0.2-1.0)
[2019-02-13] MEDS ORDERED: PANTOPRAZOLE 40 MG TABLET.DR. PO SCH (07:30)
[2019-02-13 07:59] VITALS: BP 117/63
--- NOTE | 2019-02-13 11:20 | PDOC ---
[facility] [facility] [facility]GRESS NOTE Chief Complaint Chief Complaint GI Bleed History of Present Illness History of Present Illness 02/12/2019 Pt was seen an examined. Reports he has been constipated since admission, additionally complains of some dizziness. No reported Bloody stools today. Pt reports he's ready for discharge. Vitals/I&O Vitals/I&O: Vital Signs Date Time Temp Pulse Resp B/P (MAP) Pulse Ox O2 Delivery O2 Flow Rate FiO2 02/13/19 07:59 98.1 80 18 117/63 (81) 93 Room Air 98.1 I & O 02/12/19 02/12/19 02/13/19 15:00 23:00 07:00 Intake Total 505 ml 0 ml Balance 505 ml 0 ml Physical Exam General: Alert, Oriented X3, Cooperative Heart: Regular rate, Normal S1, Normal S2 Lungs: Clear Abdomen: Normal bowel sounds Extremities: No clubbing, No cyanosis Skin: No rashes, No breakdown Labs Labs: Laboratory Tests Test 02/13/19 03:15 02/13/19 03:35 White Blood Count 9.4 x10^3/uL (4.0-11.0) Red Blood Count 4.40 x10^6/uL (4.30-5.70) Hemoglobin 13.5 g/dL (13.0-17.5) Hematocrit 39.9 % (39.0-53.0) Mean Corpuscular Volume 91 fL (79-100) Mean Corpuscular Hemoglobin 31 pg (25-35) Mean Corpuscular Hemoglobin Concent 34 g/dL (31-37) Red Cell Distribution Width 13.1 % (11.5-14.5) Platelet Count 308 x10^3/uL (140-400) Neutrophils (%) (Auto) 51 % (31-73) Lymphocytes (%) (Auto) 34 % (24-48) Monocytes (%) (Auto) 10 % (0-9) Eosinophils (%) (Auto) 4 % (0-3) Basophils (%) (Auto) 1 % (0-3) Neutrophils # (Auto) 4.8 x10^3/uL (1.8-7.7) Lymphocytes # (Auto) 3.2 x10^3/uL (1.0-4.8) Monocytes # (Auto) 0.9 x10^3/uL (0.0-1.1) Eosinophils # (Auto) 0.4 x10^3/uL (0.0-0.7) Basophils # (Auto) 0.1 x10^3/uL (0.0-0.2) Sodium Level 141 mmol/L (136-145) Potassium Level 4.2 mmol/L (3.5-5.1) Chloride Level 106 mmol/L (98-107) Carbon Dioxide Level 25 mmol/L (21-32) Anion Gap 10 (6-14) Blood Urea Nitrogen 14 mg/dL (8-26) Creatinine 0.9 mg/dL (0.7-1.3) Estimated GFR (Cockcroft-Gault) 86.7 BUN/Creatinine Ratio 16 (6-20) Glucose Level 96 mg/dL (70-99) Calcium Level 9.1 mg/dL (8.5-10.1) Total Bilirubin 0.3 mg/dL (0.2-1.0) Aspartate Amino Transf (AST/SGOT) 18 U/L (15-37) Alanine Aminotransferase (ALT/SGPT) 33 U/L (16-63) Alkaline Phosphatase 69 U/L (46-116) Total Protein 7.0 g/dL (6.4-8.2) Albumin 3.5 g/dL (3.4-5.0) Albumin/Globulin Ratio 1.0 (1.0-1.7) Review of Systems Review of Systems: Denies CP Denies SOB Denies N/V/D Assessment and Plan Assessmemt and Plan Problems Medical Problems: (1) Melanotic stools Status: Acute (2) Upper GI bleed Status: Acute GI Bleed Plan: 1) Plan to D/C today if consults are agreeable 2) Contact cardiology to determine if patient should still be on plavix due to current GI bleed 3) Wrote patient prescription for Meclazine 25mg prf dizziness, wrote patient rx for protonix 40 mg qd as recommended by GI 4) Full code 5) DVT prophylaxis 6) PT/OT Comment Review of Relevant I have reviewed the following items marie (where applicable) has been applied. Medications: Current Medications Medications (Trade) Dose Ordered Sig/Audrey Route PRN Reason Start Time Stop Time Status Last Admin Dose Admin Pantoprazole Sodium 80 mg/ Sodium Chloride 100 ml @ 10 mls/hr 1X ONCE IV 10/25/19 11:45 02/12/19 17:51 DC 02/12/19 11:51 Ringer's Solution 1,000 ml @ 50 mls/hr Q20H IV 02/12/19 13:18 02/13/19 01:17 DC 02/12/19 15:40 Pantoprazole Sodium (Protonix) 40 mg DAILYAC PO 02/13/19 07:30 02/13/19 08:21 JETT DUMAS III DO Feb 13, 2019 11:20
--- NOTE | 2019-02-13 11:49 | PDOC2 ---
CONSULT Date of Consult Date of Consult DATE: 02/13/19 TIME: 11:49 Reason for Consult Reason for Consult: Plavix Referring Physician Referring Physician: Dr. Burnett Identification/Chief Complaint Chief Complaint Melena Source Source: Chart review, Patient History of Present Illness Reason for Visit: 58-year-old male with history of coronary artery disease and peripheral vascular disease who recently underwent QUALITY ASSURANCE MONITOR FINAL/stent to SFA presented with melena and was diagnosed with GI bleeding. EGD showed duodenal ulcers and gastritis. He was placed on proton pump inhibitors by gastroenterology team. We have been consulted to address the issue of Plavix. He denied any chest pain, orth opnea/PND, palpitations, syncope or claudication. Past Medical History Past Medical History Coronary artery disease s/p PCI/stent to LAD and LCx in 2011 Peripheral artery disease s/p QUALITY ASSURANCE MONITOR FINAL/stent to right EIA and more recently to SFA Hypertension Hyperlipidemia Social History <1 pack per day ALCOHOL: heavy (8 or 9 beers every other day) Drugs: None Current Problem List Problem List Problems Medical Problems: (1) Melanotic stools Status: Acute (2) Upper GI bleed Status: Acute Current Medications Current Medications Current Medications Pantoprazole Sodium 80 mg/ Sodium Chloride 100 ml @ 10 mls/hr 1X ONCE IV Last administered on 02/12/19at 11:51; Start 02/12/19 at 11:45; Stop 02/12/19 at 17:51; Status DC Ondansetron HCl (Zofran) 4 mg PRN Q8HRS PRN IV NAUSEA/VOMITING; Start 02/12/19 at 12:00; Stop 02/13/19 at 11:59 Ringer's Solution 1,000 ml @ 50 mls/hr Q20H IV Last administered on 02/12/19at 15:40; Start 02/12/19 at 13:18; Stop 02/13/19 at 01:17; Status DC Propofol 20 ml @ As Directed STK-MED ONCE IV ; Start 02/12/19 at 15:49; Stop 02/12/19 at 15:49; Status DC Pantoprazole Sodium (Protonix) 40 mg DAILYAC PO Last administered on 02/13/19at 08:21; Start 02/13/19 at 07:30 Active Scripts Active Reported Atorvastatin Calcium 40 Mg Tablet 1 Tab PO QHS Lisinopril 40 Mg Tablet 1 Tab PO DAILY Aspirin 81 Mg Tab.chew 1 Tab PO DAILY Nifedipine Er (Nifedipine) 60 Mg Tab.er.24 1 Tab PO DAILY Allergies Allergies: Coded Allergies: No Known Drug Allergies (Unverified , 01/26/19) ROS PSYCHOLOGICAL ROS: No: Hallucinations Eyes: No Loss of vision HEENT: No: Epistaxis Respiratory: No: Hemoptysis Cardiovascular: No Chest Pain Gastrointestinal: Yes Melena; No Vomiting Genitourinary: No Hematuria Neurological: No Seizures Physical Exam General: Alert, Oriented X3 HEENT: Atraumatic Lungs: Clear to auscultation Heart: Regular rate Abdomen: Soft Extremities: No edema Psych/Mental Status: Mood NL Vitals VITALS Vital Signs Date Time Temp Pulse Resp B/P (MAP) Pulse Ox O2 Delivery O2 Flow Rate FiO2 02/13/19 07:59 98.1 80 18 117/63 (81) 93 Room Air 98.1 Labs Labs Laboratory Tests Test 02/12/19 11:11 02/13/19 03:15 02/13/19 03:35 White Blood Count 10.2 x10^3/uL (4.0-11.0) 9.4 x10^3/uL (4.0-11.0) Red Blood Count 4.59 x10^6/uL (4.30-5.70) 4.40 x10^6/uL (4.30-5.70) Hemoglobin 14.5 g/dL (13.0-17.5) 13.5 g/dL (13.0-17.5) Hematocrit 41.4 % (39.0-53.0) 39.9 % (39.0-53.0) Mean Corpuscular Volume 90 fL (79-100) 91 fL (79-100) Mean Corpuscular Hemoglobin 32 pg (25-35) 31 pg (25-35) Mean Corpuscular Hemoglobin Concent 35 g/dL (31-37) 34 g/dL (31-37) Red Cell Distribution Width 12.9 % (11.5-14.5) 13.1 % (11.5-14.5) Platelet Count 321 x10^3/uL (140-400) 308 x10^3/uL (140-400) Neutrophils (%) (Auto) 57 % (31-73) 51 % (31-73) Lymphocytes (%) (Auto) 31 % (24-48) 34 % (24-48) Monocytes (%) (Auto) 9 % (0-9) 10 % (0-9) Eosinophils (%) (Auto) 2 % (0-3) 4 % (0-3) Basophils (%) (Auto) 1 % (0-3) 1 % (0-3) Neutrophils # (Auto) 5.8 x10^3/uL (1.8-7.7) 4.8 x10^3/uL (1.8-7.7) Lymphocytes # (Auto) 3.1 x10^3/uL (1.0-4.8) 3.2 x10^3/uL (1.0-4.8) Monocytes # (Auto) 0.9 x10^3/uL (0.0-1.1) 0.9 x10^3/uL (0.0-1.1) Eosinophils # (Auto) 0.2 x10^3/uL (0.0-0.7) 0.4 x10^3/uL (0.0-0.7) Basophils # (Auto) 0.1 x10^3/uL (0.0-0.2) 0.1 x10^3/uL (0.0-0.2) Prothrombin Time 12.5 SEC (11.7-14.0) Prothromb Time International Ratio 1.0 (0.8-1.1) Sodium Level 140 mmol/L (136-145) 141 mmol/L (136-145) Potassium Level 4.4 mmol/L (3.5-5.1) 4.2 mmol/L (3.5-5.1) Chloride Level 104 mmol/L (98-107) 106 mmol/L (98-107) Carbon Dioxide Level 23 mmol/L (21-32) 25 mmol/L (21-32) Anion Gap 13 (6-14) 10 (6-14) Blood Urea Nitrogen 16 mg/dL (8-26) 14 mg/dL (8-26) Creatinine 0.9 mg/dL (0.7-1.3) 0.9 mg/dL (0.7-1.3) Estimated GFR (Cockcroft-Gault) 86.7 86.7 BUN/Creatinine Ratio 18 (6-20) 16 (6-20) Glucose Level 123 mg/dL (70-99) 96 mg/dL (70-99) Calcium Level 9.6 mg/dL (8.5-10.1) 9.1 mg/dL (8.5-10.1) Total Bilirubin 0.4 mg/dL (0.2-1.0) 0.3 mg/dL (0.2-1.0) Aspartate Amino Transf (AST/SGOT) 25 U/L (15-37) 18 U/L (15-37) Alanine Aminotransferase (ALT/SGPT) 38 U/L (16-63) 33 U/L (16-63) Alkaline Phosphatase 79 U/L (46-116) 69 U/L (46-116) Total Protein 8.0 g/dL (6.4-8.2) 7.0 g/dL (6.4-8.2) Albumin 4.0 g/dL (3.4-5.0) 3.5 g/dL (3.4-5.0) Albumin/Globulin Ratio 1.0 (1.0-1.7) 1.0 (1.0-1.7) Laboratory Tests Test 02/13/19 03:15 02/13/19 03:35 White Blood Count 9.4 x10^3/uL (4.0-11.0) Red Blood Count 4.40 x10^6/uL (4.30-5.70) Hemoglobin 13.5 g/dL (13.0-17.5) Hematocrit 39.9 % (39.0-53.0) Mean Corpuscular Volume 91 fL (79-100) Mean Corpuscular Hemoglobin 31 pg (25-35) Mean Corpuscular Hemoglobin Concent 34 g/dL (31-37) Red Cell Distribution Width 13.1 % (11.5-14.5) Platelet Count 308 x10^3/uL (140-400) Neutrophils (%) (Auto) 51 % (31-73) Lymphocytes (%) (Auto) 34 % (24-48) Monocytes (%) (Auto) 10 % (0-9) Eosinophils (%) (Auto) 4 % (0-3) Basophils (%) (Auto) 1 % (0-3) Neutrophils # (Auto) 4.8 x10^3/uL (1.8-7.7) Lymphocytes # (Auto) 3.2 x10^3/uL (1.0-4.8) Monocytes # (Auto) 0.9 x10^3/uL (0.0-1.1) Eosinophils # (Auto) 0.4 x10^3/uL (0.0-0.7) Basophils # (Auto) 0.1 x10^3/uL (0.0-0.2) Sodium Level 141 mmol/L (136-145) Potassium Level 4.2 mmol/L (3.5-5.1) Chloride Level 106 mmol/L (98-107) Carbon Dioxide Level 25 mmol/L (21-32) Anion Gap 10 (6-14) Blood Urea Nitrogen 14 mg/dL (8-26) Creatinine 0.9 mg/dL (0.7-1.3) Estimated GFR (Cockcroft-Gault) 86.7 BUN/Creatinine Ratio 16 (6-20) Glucose Level 96 mg/dL (70-99) Calcium Level 9.1 mg/dL (8.5-10.1) Total Bilirubin 0.3 mg/dL (0.2-1.0) Aspartate Amino Transf (AST/SGOT) 18 U/L (15-37) Alanine Aminotransferase (ALT/SGPT) 33 U/L (16-63) Alkaline Phosphatase 69 U/L (46-116) Total Protein 7.0 g/dL (6.4-8.2) Albumin 3.5 g/dL (3.4-5.0) Albumin/Globulin Ratio 1.0 (1.0-1.7) Assessment/Plan Assessment/Plan 1. GI bleeding: EGD showed duodenal ulcers and gastritis. Presently being treated with proton pump inhibitors per gastric surgery team. Okay to hold Plavix from our standpoint. 2. Coronary artery disease: s/p PCI/stent to LAD and LCx in 2011, presently stable and chest pain-free. Continue current secondary prevention measures. 3. PAD s/p QUALITY ASSURANCE MONITOR FINAL/stent to right EIA and more recently to SFA, presently without any claudication symptoms. 4. Hypertension: Controlled 5. Hyperlipidemia: Statins Thank you for your consultation GERARD ACE MD Feb 13, 2019 11:49
--- NOTE | 2019-02-13 14:21 | NUR ---
Discharge Note: Patient was discharged home with self care. Patients family member at the bedside at the time of discharge education. Patients IV was discontinued without any complications per LEAD WELDER. Patient was given discharge summary/instructions, follow-ups, prescriptions and educational material. Patient did not have any further questions or concerns. Patient ambulated to the main entrance with all personal belongings accompanied by RON Panda, where his family member was waiting for him to take him home.
--- NOTE | 2019-02-16 13:08 | DS ---
DATE OF DISCHARGE: 02/13/2019 ADMISSION DIAGNOSIS: Gastrointestinal bleed. DISCHARGE DIAGNOSES: Resolving gastrointestinal bleed secondary to duodenal ulcers and gastritis noted on EGD. Also, he is on Plavix, which may have contributed. CONSULTS: Cardiology and GI. PROCEDURES: EGD. HOSPITAL COURSE: The patient is a pleasant middle-aged male who basically had recent stents placed in his leg and was placed on Plavix. He then developed GI bleeding. We admitted the patient, transfused, and consulted GI and Cardiology. EGD confirmed ulcers. The next day, the patient was doing better. We discharged with close outpatient followup. I left it up to Cardiology whether they would like to resume the Plavix. DISPOSITION: Home. ACTIVITY: As tolerated. DIET: Low sodium. MEDICATIONS: Please see MRAD. TOTAL TIME: 32 minutes. JETT DUMAS DO DR: BARBRA/jefry JOB#: [id number] / [id number]
--- NOTE | 2019-02-16 16:06 | PATHOLOGY ---
[facility] Accession Number: [id number] . 01 Material submitted: . stomach - GASTRIC BIOPSY . 01 Clinical history: . Pre-OP DX: Melena Post-OP DX: Rule out H. pylori, duodenal ulcers . 02 Diagnosis: Gastric biopsies, antrum: - Mild chronic gastritis, focally active, patchy. (JPM:project management professor; 02/16/2019) MBR 02/16/2019 1516 Local . 02 Comment: Sections of the gastric biopsy reveal segments of gastric antral and antral/body transition mucosa showing congestion and patchy, focally active mild chronic inflammation. A properly controlled immunoperoxidase stain for Helicobacter is negative for Helicobacter organisms. There is no evidence of malignancy. (JPM:project management professor; 02/16/2019) . Special stain performed: Immunoperoxidase stain for Helicobacter . 02 Electronically signed: . Yaakov Henson MD, Pathologist NPI- [id number] . 01 Gross description: . Received in formalin labeled "[place], [place], gastric BX," are 3 segments of nunes soft tissue measuring 0.9 x 0.9 x 0.3 cm in aggregate dimensions and ranging from 0.4 to 0.5 cm in maximum dimension. The specimen is submitted entirely in cassette A1. (TSD; 02/15/2019) TOB/TOB 02/15/2019 1739 Local . 02 Pathologist provided ICD-10: K29.50 . 02 CPT . 664571, O37571 Specimen Comment: A courtesy copy of this report has been sent to [phone], [phone] Specimen Comment: [phone], , Specimen Comment: Report sent to , , Specimen Comment: and Performed at: [address] [facility] [address], [place], [place] [id number] MD Chuck Brown MD Phone: [phone] Performed at: 02 [facility] [address] [place], [place] [id number] MD Yaakov Henson MD Phone: [phone]
== END 2019-02-13 12:00 | disposition home or self-care (01) | DRG 378 ==
LOC: ER 10:51 → 5 SOUTH 11:42
PROVIDERS: ADMIT Internal Medicine; ATTEND Internal Medicine
PROC: 0DB68ZX Excision of Stomach, Via Natural or Artificial Opening Endoscopic, Diagnostic (ICD-10-PCS; principal; 2019-02-12 16:30)
DX: K26.4 Chronic or unspecified duodenal ulcer with hemorrhage (principal); D68.32 Hemorrhagic disorder due to extrinsic circulating anticoagulants; K29.71 Gastritis, unspecified, with bleeding; E11.51 Type 2 diabetes mellitus with diabetic peripheral angiopathy without gangrene; E78.5 Hyperlipidemia, unspecified; F17.210 Nicotine dependence, cigarettes, uncomplicated; I10 Essential (primary) hypertension; I25.10 Atherosclerotic heart disease of native coronary artery without angina pectoris; K59.00 Constipation, unspecified; T45.525A Adverse effect of antithrombotic drugs, initial encounter; Z79.02 Long term (current) use of antithrombotics/antiplatelets; Z79.82 Long term (current) use of aspirin; Z80.9 Family history of malignant neoplasm, unspecified; Z83.3 Family history of diabetes mellitus; Z87.19 Personal history of other diseases of the digestive system; Z95.5 Presence of coronary angioplasty implant and graft; Z98.62 Peripheral vascular angioplasty status; Z79.899 Other long term (current) drug therapy; Y92.89 Other specified places as the place of occurrence of the external cause
CPT/HCPCS: 36415; 43239; 80053; 85025; 85610; 86850; 86900; 86901; 88305; 88342; 93005; 96365; C9113; J2704; J7120; 99285-25; G0378

== ENCOUNTER 2020-09-25 06:35 | Observation (INO) | payer BC ==
[2020-09-25] VITALS (14 sets, daily range): BP systolic 90–130; BP diastolic 55–79
[~2020-09-25] VITALS: Ht 170.2 cm; Wt 91.4 kg
[~2020-09-25 06:35] MED LIST changes: +ATOR40TA59 PO; -NIFE60TA16 PO; +NIFE60TA90 PO; +SIMV40TA18 PO; -SIMV40TA3 PO
[2020-09-25] MEDS ORDERED: HEPARIN for ARTERIAL LINE 1,500 ML ONE (07:34)
[2020-09-25] MEDS ORDERED: IODIXANOL 320 MG/ML 100 ML VIAL. ONE (07:34)
[2020-09-25] MEDS ORDERED: LIDOCAINE 1% Multi-Dose 20 ML VIAL. ONE (07:34)
[2020-09-25 07:55] LABS: HEMATOCRIT 45.4 % (39.0-53.0); HEMOGLOBIN 15.6 g/dL (13.0-17.5); RED BLOOD COUNT 4.99 x10^6/uL (4.30-5.70); RED CELL DISTRIBUTION WIDTH 13.7 % (11.5-14.5); WHITE BLOOD COUNT 9.1 x10^3/uL (4.0-11.0)
[2020-09-25 08:02] LABS: CALCIUM 9.6 mg/dL (8.5-10.1); CREATININE 0.9 mg/dL (0.7-1.3); GFR 86.4; POTASSIUM 4.2 mmol/L (3.5-5.1)
[2020-09-25 08:04] LABS: PROTHROMBIN TIME PATIENT 12.1 SEC (11.7-14.0)
[2020-09-25] MEDS ORDERED: OMEG1CAP38 PO (08:13)
[2020-09-25] MEDS ORDERED: HEPARIN for IV BOLUS 10,000 UNIT/10 ML VIAL. ONE (08:28)
[2020-09-25] MEDS ORDERED: fentaNYL PF VIAL 100 MCG/2 ML VIAL ONE ×2 (08:28→09:31)
[2020-09-25] MEDS ORDERED: MIDAZOLAM HCL/PF 2 MG/2 ML VIAL. ONE ×2 (08:28→09:31)
--- NOTE | 2020-09-25 08:45 | PDOC1 ---
History and Physical Visit Information Date of Admission: September 25, 2020 History of Present Illness History of Present Illness Mandeep is a pleasant 59-year-old man who is lifestyle limiting claudication who comes into the hospital today for planned aortogram with runoff. He was previously seen in the office and initially reported that he did not have any significant symptoms but then he had a follow-up with his primary care physician he was reporting worsening lifestyle limiting symptoms and therefore after discussion the risks and benefits he was brought to the [facility] for further evaluation. Cardiac Risk Factors Comments Hypertension Tobacco abuse PAD with prior right external iliac artery stenting and left SFA and atherectomy Current Medications Current Medications Current Medications Fentanyl Citrate (Fentanyl 2ml Vial) 100 mcg STK-MED ONCE .ROUTE ; Start 09/25/20 at 08:28; Stop 09/25/20 at 08:29; Status DC Heparin Sodium (Porcine) (Heparin Sodium) 10,000 unit STK-MED ONCE .ROUTE ; Start 09/25/20 at 08:28; Stop 09/25/20 at 08:29; Status DC Heparin Sodium/ Sodium Chloride 1,500 ml @ As Directed STK-MED ONCE .ROUTE ; Start 09/25/20 at 07:34; Stop 09/25/20 at 07:35; Status DC Iodixanol (Visipaque 320) 100 ml STK-MED ONCE .ROUTE ; Start 09/25/20 at 07:34; Stop 09/25/20 at 07:35; Status DC Lidocaine HCl (Lidocaine 1% 20ml Vial) 20 ml STK-MED ONCE .ROUTE ; Start 09/25/20 at 07:34; Stop 09/25/20 at 07:34; Status DC Midazolam HCl (Versed) 2 mg STK-MED ONCE .ROUTE ; Start 09/25/20 at 08:28; Stop 09/25/20 at 08:28; Status DC Allergies Allergies Allergies Coded Allergies Type Severity Reaction Last Updated Verified No Known Drug Allergies 01/26/19 No Social History Comments Positive for tobacco abuse Family History Comments Noncontributory ROS Review of System Negative for 10 out of 14 systems reviewed unless otherwise mentioned above in HPI. Most notably he has bilateral lower extremity claudication Physical Exam General: Alert, Oriented X3 HEENT: Atraumatic Lungs: Clear to auscultation Heart: Regular rate, Normal S1, Normal S2 CHEST: Clear to auscultation Abdomen: Normal bowel sounds Extremities: No clubbing Skin: No rashes Neuro: Normal gait Vitals VITALS Vital Signs Date Time Temp Pulse Resp B/P (MAP) Pulse Ox O2 Delivery O2 Flow Rate FiO2 09/25/20 07:58 98.2 68 16 127/70 (89) 97 Room Air 98.2 Labs Labs Laboratory Tests Test 09/25/20 07:25 White Blood Count 9.1 x10^3/uL (4.0-11.0) Red Blood Count 4.99 x10^6/uL (4.30-5.70) Hemoglobin 15.6 g/dL (13.0-17.5) Hematocrit 45.4 % (39.0-53.0) Mean Corpuscular Volume 91 fL (79-100) Mean Corpuscular Hemoglobin 31 pg (25-35) Mean Corpuscular Hemoglobin Concent 34 g/dL (31-37) Red Cell Distribution Width 13.7 % (11.5-14.5) Platelet Count 266 x10^3/uL (140-400) Prothrombin Time 12.1 SEC (11.7-14.0) Prothromb Time International Ratio 0.9 (0.8-1.1) Sodium Level 141 mmol/L (136-145) Potassium Level 4.2 mmol/L (3.5-5.1) Chloride Level 107 mmol/L (98-107) Carbon Dioxide Level 24 mmol/L (21-32) Anion Gap 10 (6-14) Blood Urea Nitrogen 14 mg/dL (8-26) Creatinine 0.9 mg/dL (0.7-1.3) Estimated GFR (Cockcroft-Gault) 86.4 Glucose Level 103 mg/dL (70-99) Calcium Level 9.6 mg/dL (8.5-10.1) Laboratory Tests Test 09/25/20 07:25 White Blood Count 9.1 x10^3/uL (4.0-11.0) Red Blood Count 4.99 x10^6/uL (4.30-5.70) Hemoglobin 15.6 g/dL (13.0-17.5) Hematocrit 45.4 % (39.0-53.0) Mean Corpuscular Volume 91 fL (79-100) Mean Corpuscular Hemoglobin 31 pg (25-35) Mean Corpuscular Hemoglobin Concent 34 g/dL (31-37) Red Cell Distribution Width 13.7 % (11.5-14.5) Platelet Count 266 x10^3/uL (140-400) Prothrombin Time 12.1 SEC (11.7-14.0) Prothromb Time International Ratio 0.9 (0.8-1.1) Sodium Level 141 mmol/L (136-145) Potassium Level 4.2 mmol/L (3.5-5.1) Chloride Level 107 mmol/L (98-107) Carbon Dioxide Level 24 mmol/L (21-32) Anion Gap 10 (6-14) Blood Urea Nitrogen 14 mg/dL (8-26) Creatinine 0.9 mg/dL (0.7-1.3) Estimated GFR (Cockcroft-Gault) 86.4 Glucose Level 103 mg/dL (70-99) Calcium Level 9.6 mg/dL (8.5-10.1) ECG EKG: NSR VTE Prophylaxis Ordered VTE Prophylaxis Devices: No VTE Pharmacological Prophylaxi: No Assessment/Plan Assessment/Plan 1. Abnormal bilateral lower extremity Doppler study with left side limiting claudication. Plan for aortogram with runoff Justicifation of Admission Dx: Justifications for Admission: Justification of Admission Dx: N/A NATHANAEL DAMON MD Sep 25, 2020 08:44
--- NOTE | 2020-09-25 08:45 | PDOC ---
MODERATE SEDATION ASSESSMENT RISKS/ALTERNATIVES Risks/Alternatives Risks and alternatives of this type of sedation and procedure discussed with: RISK/ALTERNATIVES: Patient H & P ON CHART H & P H & P on chart and reviewed for co-morbid conditions and appropriate labs. H&P ON CHART: Yes STATUS PREG STATUS ASSESSED: N/A MEDS/ALLERGIES REVIEWED Meds/Allergies Reviewed Medications and Allergies including time and route of recently administered narcotics and sedatives. MEDS/ALLERGIES REVIEWED: Yes ASA RATING ASA RATING: II AIRWAY ASSESSMENT Airway Assessment Airway patency, oral function limitations, presence of caps, crowns, dentures, partials, and ability to extend neck assessed. AIRWAY ASSESSMENT: Yes MALLAMPATI SCORE MALLAMPATI SCORE: II PRE-SEDATION ASSESSMENT PRE-SEDATION ASSESSMENT: Yes NATHANAEL DAMON MD Sep 25, 2020 08:45
[2020-09-25] MEDS ORDERED: LIDOCAINE 1% PF 2 ML VIAL. ONE (09:01)
[2020-09-25] MEDS ORDERED: NITROGLYCERIN 200 MCG/2 ML SYRINGE FOR CATH/VASC LAB. ONE (09:02)
[2020-09-25] MEDS ORDERED: fentaNYL PF VIAL 100 MCG/2 ML VIAL IV ONE (10:00)
[2020-09-25] MEDS ORDERED: IODIXANOL 320 MG/ML 100 ML VIAL. IART ONE (10:00)
[2020-09-25] MEDS ORDERED: LIDOCAINE 1% Multi-Dose 20 ML VIAL. INJ ONE (10:00)
[2020-09-25] MEDS ORDERED: MIDAZOLAM HCL/PF 2 MG/2 ML VIAL. IV ONE (10:00)
[2020-09-25] MEDS ORDERED: HEPARIN for IV BOLUS 10,000 UNIT/10 ML VIAL. IV ONE (10:00)
[2020-09-25] MEDS ORDERED: CLOPIDOGREL BISULFATE 75 MG TABLET PO ONE (10:30)
[2020-09-25] MEDS ORDERED: NITROGLYCERIN 200 MCG/2 ML SYRINGE FOR CATH/VASC LAB. IART ONE (10:30)
[2020-09-25] MEDS ORDERED: CLOPIDOGREL BISULFATE 75 MG TABLET ONE (10:37)
--- NOTE | 2020-09-25 11:26 | CARD ---
MR#: [id number] Date of Study: 09/25/2020 Ordering Physician: NATHANAEL DAMON, Referring Physician: NATHANAEL DAMON, Tech: Randolph Velasquez RT(R)() APPROVED REPORT Patient [id number] Personal Banking Officer: Randolph Velasquez RT(R)() Procedure(s) performed: FL TIME: 24.6 MINS DOSE: 210 GYCM2 CONTRAST: 127 ML MODERATE SEDATION: 114 MINS Abdominal aortogram with bilateral run-off Ultrasound guided right groin access Complex PVI of the left external iliac artery with balloon angioplasty and stent placement PROCEDURE NARRATIVE Clinical information: 59-year-old male with a prior history of peripheral arterial disease presented to the office in the s etting of worsening left lower extremity claudication. He had intermittent rest pain. After discuss ion of risks and benefits the patient was taken to the catheterization laboratory for angiography. Procedure details: The bilateral groins were prepped and draped in usual sterile fashion. The right groin was infiltrat ed with 15 mL of 1% lidocaine for local anesthesia. Due to severe peripheral vascular disease ultras ound guidance was used and initially there was difficulty manipulating the wire through the femoral v asculature but ultimately a 5 Uzbek sheath was able to be placed in the right common femoral artery. Next, an Omni Flush catheter was placed in the abdominal aorta and digital subtraction angiography was performed. The 5 Uzbek Omni Flush catheter was then used to cross over to the left common iliac artery. With the aid of a glide wire and Reggie cross catheter the left external iliac lesion was croze cutter helper ssed and left lower extremity runoff was performed. Findings: Aorta mild diffuse atherosclerosis without any significant focal obstruction. There is minimal aneur ysmal dilatation prior to the aortic bifurcation Bilateral common iliacs are mildly diffusely diseased with up to 30% stenosis Left internal iliac artery is subtotally occluded. Left external iliac artery has a proximal 90% calcified stenosis. Left common femoral artery has a distal bifurcation lesion of 95% Left SFA has a proximal 90% stenosis. Left popliteal artery has no significant disease Left TP trunk has no significant disease Left anterior tibial artery has severe diffuse disease with slow flow in the mid to distal segment Left peroneal artery has mild diffuse disease Left posterior tibial artery is the dominant runoff to the foot. Right external iliac artery is heavily calcified with eccentric 50% stenosis without a significant pr essure drop across the lesion. Right common femoral artery again has a distal heavily calcific 50% stenosis. Right SFA has no significant disease Right popliteal artery has no significant disease Right TP trunk has no significant disease Right anterior tibial again has severe diffuse disease with slow flow in the mid to distal segment. Right peroneal artery has mild diffuse disease Right posterior tibial artery is widely patent and is the dominant runoff to the foot. Interventional technique: Given the patient's significant lifestyle limiting symptoms in the left leg and decision was made to intervene upon the left external iliac artery stenosis. Heparin was used for anticoagulation. The N jaciel cross catheter was removed over a 0.035 inch Glidewire advantage wire. Initially there was diffi culty traversing the right external iliac artery due to likely eccentric calcific stenosis and wire b ias. Ultimately, with wire maneuvering the sheath was delivered to the left common iliac artery. Ne xt balloon angioplasty was performed in a sequential fashion with a 6.0 x 20 mm and 8.0 x 20 mm ballo on at nominal pressures. The lesion was then stented with a 9.0 x 60 mm absolute Pro self-expanding stent. The stent was postdilated with a 8 mm balloon at nominal pressures. Final angiography demons trated 0% residual stenosis and unchanged runoff in the distal vessels. The right groin sheath was t hen exchanged for a short 6 Uzbek sheath and hemostasis was achieved with manual compression approxi mately 1 hour after the procedure was completed. Conclusion 1. Severe bilateral lower extremity arterial disease with Sevier category 3/4 claudication 2. Successful complex peripheral vascular intervention of the left external iliac artery with a abso lute Pro self-expanding 9 x 60 mm stent Recommendations 1. Smoking cessation 2. Consider outpatient vascular surgery referral for complex endarterectomy of the distal BALLER TENDER bifurc ation lesion versus stenting as needed based on symptoms. Signed by : Nathanael Damon, Electronically Approved : 09/25/2020 11:26:10
[2020-09-25] MEDS ORDERED: AMIODARONE 150 MG in IV DEXTROSE 5% 100ML 100 ML IV PRN (12:30)
[2020-09-25] MEDS ORDERED: NITROGLYCERIN SUBLINGUAL 0.4 MG BOTTLE OF 25. SL PRN (12:30)
[2020-09-25] MEDS ORDERED: LIDOCAINE 2% 100 MG/5 ML SYRINGE. IV PRN (12:30)
[2020-09-25] MEDS ORDERED: ATROPINE 0.5 MG/5 ML DISP.SYRINGE. IV PRN (12:30)
[2020-09-25] MEDS ORDERED: fentaNYL PF VIAL 100 MCG/2 ML VIAL IV PRN (12:30)
[2020-09-25] MEDS ORDERED: 0.9 % SODIUM CHLORIDE 10 ML DISP.SYRIN. IV PRN (12:30)
[2020-09-25] MEDS ORDERED: ACETAMINOPHEN 325 MG TABLET. PO PRN (12:30)
--- NOTE | 2020-09-25 13:03 | NUR ---
Report given to Jazmín BARRETT on . Patient's right femoral site is soft/no bleeding and dressing is clean,dry,intact. Patient to remain flat until 1609. Patient ate all of his lunch. Vital signs stable and no complaints of pain.
[2020-09-25] MEDS: RIVAROXABAN 10 MG TABLET. PO SCH ×2 (14:28→20:26)
--- NOTE | 2020-09-25 16:14 | NUR ---
Patient to 252 from lab support tech at approx 1310. Admitted to Dr. Calderon, s/p femoral runoff with stent/ballooning to L iliac artery. Went through R groin, line pulled at 1157, hemostasis at 1209. On arrival to unit, groin soft with gauze +opsite, dressing intact with no signs of bleeding. Posterior tib, dorsalis pedis pulses marked and palpable bilaterally. Pt layed flat from time of arrival until 1610, instructed by Rola BARRETT(lab support tech)- I told him OK to sit up/ad mary as tolerated now. Groin still soft, no signs of bleeding. No pain reported from patient.
[2020-09-25] MEDS ORDERED: TEMAZEPAM 15 MG CAPSULE PO PRN (19:45)
[2020-09-26 07:49] VITALS: BP 107/67
[2020-09-26 08:00] LABS: CALCIUM 9.7 mg/dL (8.5-10.1); GFR 76.5; POTASSIUM 4.7 mmol/L (3.5-5.1)
[2020-09-26] MEDS ORDERED: CLOPIDOGREL BISULFATE 75 MG TABLET PO SCH (08:00)
[2020-09-26 08:03] LABS: CHOLESTEROL/HDL RATIO 2.2
[2020-09-26] MEDS: RIVAROXABAN 10 MG TABLET. PO SCH (09:05)
[2020-09-26 10:36] VITALS: BP 110/68
--- NOTE | 2020-09-26 12:41 | DISCH ---
DISCHARGE INSTRUCTIONS Condition on Discharge Condition on Discharge: Stable Activity After Discharge Activity Instructions for Disc: Activity as tolerated Bathing Instructions: No Tub Bath until see Lifting Instructions after Dis: No heavy lifting, No pulling or pushing, Do not lift >10 pounds Exercise Instruction after Dis: Progress as tolerated Driving Instructions after Dis: Other, see below Weight Bearing Status after Di: Full weight bearing, As tolerated Diet after Discharge Diet after Discharge: Cardiac Diet Texture: Regular Liquid Texture: Thin Liquid Swallowing Supervision: None needed Contacting the [facility] after DC Call your doctor for: If your condition worsens Treatment/Equipment after DC Adaptive Equipment Issued: None SHAQUILLE YUEN APRN Sep 26, 2020 12:41
[2020-09-26] MEDS ORDERED: RIVA10TA PO (12:47)
[2020-09-26] MEDS ORDERED: CLOP75TA PO (12:49)
--- NOTE | 2020-09-26 13:52 | NUR ---
SS following for discharge planning. SS reviewed pt chart and discussed with pt RN. Pt is from home with spouse and is currently on room air. Discharge order on the chart for home with self care.
--- NOTE | 2020-09-26 14:33 | NUR ---
Discharge Note: JOSEPHINE TAYLOR [address] Discharge instructions and discharge home medications reviewed with Patient and a copy given. All questions have been answered and understanding verbalized. The following instructions and handouts were given: PVD, INCISIONAL CARE Discontinued lines and drains: Peripheral IV intact. Patient discharged to Home or Self Care withSpousevia Ambulated
--- NOTE | 2020-09-26 14:38 | PDOC3 ---
Discharge Summary Visit Information Date of Admission: Sep 25, 2020 Date of Discharge: Sep 26, 2020 Admitting Diagnosis: PAD, CAD, Hypertension, Hyperlipidemia Admitting Diagnosis Comment: PAD CAD Hypertension Hyperlipidemia Final Diagnosis PAD CAD Hypertension Hyperlipidemia Brief Hospital Course Allergies Allergies Coded Allergies Type Severity Reaction Last Updated Verified No Known Drug Allergies 01/26/19 No Vital Signs Vital Signs Date Time Temp Pulse Resp B/P (MAP) Pulse Ox O2 Delivery O2 Flow Rate FiO2 09/26/20 10:36 98.0 74 20 110/68 (82) 98 Room Air 98.0 09/25/20 10:46 2.0 Lab Results Laboratory Tests Test 09/25/20 07:25 09/25/20 10:00 09/26/20 06:05 White Blood Count 9.1 x10^3/uL (4.0-11.0) Red Blood Count 4.99 x10^6/uL (4.30-5.70) Hemoglobin 15.6 g/dL (13.0-17.5) Hematocrit 45.4 % (39.0-53.0) Mean Corpuscular Volume 91 fL (79-100) Mean Corpuscular Hemoglobin 31 pg (25-35) Mean Corpuscular Hemoglobin Concent 34 g/dL (31-37) Red Cell Distribution Width 13.7 % (11.5-14.5) Platelet Count 266 x10^3/uL (140-400) Prothrombin Time 12.1 SEC (11.7-14.0) Prothromb Time International Ratio 0.9 (0.8-1.1) Sodium Level 141 mmol/L (136-145) 143 mmol/L (136-145) Potassium Level 4.2 mmol/L (3.5-5.1) 4.7 mmol/L (3.5-5.1) Chloride Level 107 mmol/L (98-107) 107 mmol/L (98-107) Carbon Dioxide Level 24 mmol/L (21-32) 27 mmol/L (21-32) Anion Gap 10 (6-14) 9 (6-14) Blood Urea Nitrogen 14 mg/dL (8-26) 12 mg/dL (8-26) Creatinine 0.9 mg/dL (0.7-1.3) 1.0 mg/dL (0.7-1.3) Estimated GFR (Cockcroft-Gault) 86.4 76.5 Glucose Level 103 mg/dL (70-99) 90 mg/dL (70-99) Calcium Level 9.6 mg/dL (8.5-10.1) 9.7 mg/dL (8.5-10.1) Activated Clotting Time 213 sec (92-181) Triglycerides Level 113 mg/dL (0-150) Cholesterol Level 118 mg/dL (0-200) LDL Cholesterol, Calculated 42 mg/dL (0-100) VLDL Cholesterol, Calculated 23 mg/dL (0-40) Non-HDL Cholesterol Calculated 65 mg/dL (0-129) HDL Cholesterol 53 mg/dL (40-60) Cholesterol/HDL Ratio 2.2 Laboratory Tests Test 09/26/20 06:05 Sodium Level 143 mmol/L (136-145) Potassium Level 4.7 mmol/L (3.5-5.1) Chloride Level 107 mmol/L (98-107) Carbon Dioxide Level 27 mmol/L (21-32) Anion Gap 9 (6-14) Blood Urea Nitrogen 12 mg/dL (8-26) Creatinine 1.0 mg/dL (0.7-1.3) Estimated GFR (Cockcroft-Gault) 76.5 Glucose Level 90 mg/dL (70-99) Calcium Level 9.7 mg/dL (8.5-10.1) Triglycerides Level 113 mg/dL (0-150) Cholesterol Level 118 mg/dL (0-200) LDL Cholesterol, Calculated 42 mg/dL (0-100) VLDL Cholesterol, Calculated 23 mg/dL (0-40) Non-HDL Cholesterol Calculated 65 mg/dL (0-129) HDL Cholesterol 53 mg/dL (40-60) Cholesterol/HDL Ratio 2.2 Brief Hospital Course Mr. Montoya is a 59 old male, with a history of CAD and PAD, who presented to the office in the setting of worsening left lower extremity claudication. He had intermittent rest pain. After discussion of risks and benefits the patient was taken to the catheterization laboratory for angiography. Severe bilateral l ower extremity arterial disease with Oswaldo category 3/4 claudication was noted. Patient underwent successful complex peripheral vascular intervention of the left external iliac artery with a absolute Pro self-expanding 9 x 60 mm stent. Patient tolerated procedure well and was monitored overnight without complications. Right groin arteriotomy site soft, clean, and dry. No hematoma present. Bilateral neurovascular status intact. Lung CTA. Discharge instructions were reviewed. Patient with follow up with Dr. Calderon in clinic as scheduled. Assessment Assessment Pt. seen and examined. Agree with above HOUSEH[employer]ORES note. Doing well post PVI of the left external iliac artery. Plan for outpt vascular surgery evaluation. Thanks Discharge Information Condition at Discharge: Improved Follow Up: Weeks (6) Disposition/Orders: D/C to Home Scheduled Atorvastatin Calcium (Atorvastatin Calcium) 40 Mg Tablet, 1 TAB PO QHS for HLD, #90 Ref 3 (Reported) Entered as Reported by: JOHNNY BUENO on 02/12/19 1810 Last Taken: Unknown Dose on 09/24/20 Last Action: Last Taken Edited on 09/25/20812 by NATHALY THOMPSON Clopidogrel Bisulfate (Clopidogrel) 75 Mg Tablet, 75 MG PO DAILYWBKFT for PAD for 30 Days, #30 Ref 2 Prescribed by: SHAQUILLE YUEN APRN on 09/26/20 1249 Lisinopril (Lisinopril) 40 Mg Tablet, 1 TAB PO DAILY for francis inhibitor, #30 Ref 5 (Reported) Entered as Reported by: BOO LOPEZ RN on 01/26/19 1005 Last Taken: Unknown Dose on 09/25/20 Last Action: Last Taken Edited on 09/25/20812 by NATHALY THOMPSON Nifedipine (Nifedipine Er) 60 Mg Tab.er.24, 1 TAB PO DAILY for , #30 Ref 5 (Reported) Entered as Reported by: BOO LOPEZ RN on 01/26/19 1003 Last Taken: Unknown Dose on 09/25/20 Last Action: Last Taken Edited on 09/25/20812 by NATHALY THOMPSON Hollywood-3 Fatty Acids/Fish Oil (Hollywood 3 Fish Oil Softgel) 1 Each Capsule.dr, 1 EACH PO DAILY for supplement, (Reported) Entered as Reported by: NATHALY THOMPSON on 09/25/20812 Last Taken: Unknown Dose on 09/24/20 Last Action: New Order on 09/25/20812 by NATHALY THOMPSON Rivaroxaban (Xarelto) 10 Mg Tablet, 2.5 MG PO BID for PAD for 30 Days, #15 Ref 2 Prescribed by: SHAQUILLE YUEN APRN on 09/26/20 1247 Discontinued Medications Aspirin (Aspirin) 81 Mg Tab.chew, 1 TAB PO DAILY for , #30 Ref 3 (Reported) Entered as Reported by: BOO LOPEZ RN on 01/26/19 1005 Last Taken: Unknown Dose on 09/25/20 Last Action: Last Taken Edited on 09/25/20 08 by NATHALY THOMPSON Patient Instructions Patient Instructions GENERAL INSTRUCTIONS: 1. Your dressing should be removed prior to leaving the hospital. 2. It is OK to shower the day after your procedure. 3. If you received stents, be sure to carry your stent information card with you in your wallet/purse at all times. 4. Call the office immediately at [phone] if you notice any fever or if there is redness, worsening tenderness/pain, increased bruising, or drainage from the puncture site. 5. Should you have bleeding from the site, lie down immediately & put pressure on the site. The pressure should be hard enough to stop the bleeding. Have the nearest person call 911. DO NOT try to drive to the ER with active bleeding. 6. If you notice a change in color, coolness to touch, or loss of feeling in the affected extremity, come to the emergency room. Please have someone drive you or call 911 if no one is available. DO NOT drive yourself. 7. If you normally take glucophage (metformin), please do not take this medicine for 48 hours following your procedure. 8. DO NOT STOP TAKING YOUR PLAVIX OR ASPIRIN UNLESS IT IS CLEARED BY A CHIEF PROJECTIONIST OF YOUR DECK WORKER AT OUR OFFICE. 9. QUIT SMOKING: the [place] [employer], [place] [employer], & [place] [employer] have cessation resources available on their websites 10. Please have someone available to drive you home from the hospital as you m ay be limited by sedation medications given during the procedure. Femoral (Groin) access: 1. Do no lifting, pushing, pulling, bending, stooping, or recurrent stair climbing for 3 days following your procedure. 2. Once past the first 3 days, do not do any HEAVY exertion or lifting for one week following the procedure. No gym workouts, running, lifting greater than a gallon of milk, etc 3. Do not submerge in bath or pool for one week. OK to drive 3 days following your procedure, but if going long distance, do not go alone & take hourly breaks to get out of car and walk around. Radial Artery (Wrist) access: 1. No pushing, pulling, lifting, typing, or anything that requires repetitive use/movement of the affected wrist for 3 days following your procedure. 2. OK to drive the day following your procedure. (This is because of effects of sedating medications.) Call the office at [phone] for any questions or concerns. Justicifation of Admission Dx: Justifications for Admission: Justification of Admission Dx: N/A SHAQUILLE YUEN APRN Sep 26, 2020 14:38 NATHANAEL CALDERON MD Sep 27, 2020 08:57
== END 2020-09-26 14:25 | disposition home or self-care (01) ==
LOC: CCL 06:35 → INTOOBSV 10:40 → 2 SOUTH 10:40
PROVIDERS: ADMIT Internal Medicine Cardiovascular Disease; ATTEND Internal Medicine Cardiovascular Disease
DX: I74.5 Embolism and thrombosis of iliac artery (principal); I73.9 Peripheral vascular disease, unspecified; I25.10 Atherosclerotic heart disease of native coronary artery without angina pectoris; I10 Essential (primary) hypertension; E78.5 Hyperlipidemia, unspecified; I87.8 Other specified disorders of veins; Z72.0 Tobacco use; Z51.81 Encounter for therapeutic drug level monitoring
CPT/HCPCS: 36415; 37221; 75625; 75716; 76937; 80048; 80061; 85027; 85347; 85610; 99152; 99153; C1725; C1769; C1876; C1887; C1892; C1894; G0378; G0379; J1644; J2250; J3010; J3490; Q9967